=== PATIENT | male | born 1960 | race Caucasian/White ===

== ENCOUNTER 2019-10-10 23:33 | Inpatient (IN) | payer BC, OTHER, SELFPAY ==
--- NOTE | ~2019-10-10 | US_ITS ---
EXAMINATION: US renal BI DATE: 10/13/2019 15:32 INDICATION: Fever TECHNIQUE: Multiple grayscale and Doppler ultrasound images of the kidneys were obtained. COMPARISON: 10/12/2019 FINDINGS: The right kidney measures 11.2 x 5.8 x 7.1 cm. The left kidney measures 14.7 x 6.6 x 6.5 cm . The kidneys demonstrate normal parenchymal echogenicity. There is no hydronephrosis. The bladder is incompletely distended but normal in appearance. IMPRESSION: 1. Normal kidneys without hydronephrosis. Reviewed, dictated and finalized at location A.
--- NOTE | ~2019-10-10 | US_ITS ---
EXAMINATION:US venous doppler LE BI INDICATION:Elevated d-dimer. Nondiagnostic CT angiogram. TECHNIQUE: Multiple grayscale, color flow and Doppler images of the lower extremity deep venous syste ms were obtained and reviewed. COMPARISON:No prior studies for comparison. FINDINGS: The common femoral, superficial femoral and popliteal veins demonstrate normal respiratory variation, augmentation and compressibility. Color flow is also seen within the posterior tibial, pe roneal, greater saphenous and profunda veins. IMPRESSION: 1: No lower extremity deep venous thrombosis. Reviewed, dictated and finalized at location A.
--- NOTE | ~2019-10-10 | NM_ITS ---
EXAMINATION: NM pulmonary perfusion EXAM DATE: 10/12/2019 12:37 INDICATION: Shortness of breath, elevated d-dimer. TECHNIQUE: A perfusion scan was performed following intravenous injection of 5 mCi technetium 99m MAA and reimaged. Correlation is made to Chest x-ray, abdomen pelvis CT same date. FINDINGS: There are no perfusion defects identified in either lung. Homogeneous lung activity bilate rally. IMPRESSION: Normal perfusion scan. Reviewed, dictated and finalized at location B. IMPRESSION: Normal perfusion scan.
--- NOTE | ~2019-10-10 | XR_ITS ---
EXAMINATION: XR chest 2V EXAM DATE: 10/12/2019 12:52 INDICATION: Shortness of breath. TECHNIQUE: Frontal and lateral projections of the chest obtained and reviewed. Comparison is made to prior examination from 03/10/2013. FINDINGS: The lungs are clear. There are no pleural effusions. The cardiomediastinal silhouette is within normal limits. There is no pneumothorax suspected. The bones and soft tissues are unremarkab le. IMPRESSION: Unremarkable chest x-ray exam. Reviewed, dictated and finalized at location B.
--- NOTE | ~2019-10-10 | CT_ITS ---
EXAMINATION: CT abdomen pelvis wo con EXAM DATE: 10/12/2019 12:33 INDICATION: Hyponatremia. Elevated liver function tests. Fever. Prostate cancer. TECHNIQUE: Spiral CT of the abdomen and pelvis was performed without contrast. Axial, coronal and sag ittal images were reviewed. The dose-length product (DLP) for this examination was 863.76 mGy-cm. T he exposure was tailored according to patient size (auto mA exposure control), and iterative reconstr uction (ASIR) was used as additional dose reduction technique. Comparison is made to prior examinatio n from 02/21/2018. FINDINGS: There is mild to moderate bilateral perinephric and left ureteral nonspecific fat stranding without nephrolithiasis or hydronephrosis. This was not present in 2018. Patient has likely had pros tatectomy. The bladder is unremarkable. The liver, spleen, adrenal glands and pancreas are unremar kable. Gallbladder is unremarkable. No biliary obstruction. There is no retroperitoneal or pelvic lymphadenopathy. Evidence of prior supraumbilical laparotomy. Small umbilical fat-containing hernia . Mild scattered arteriosclerotic disease. The appendix is normal. The stomach and small bowel are unremarkable. There is colonic fluid, correl ate for diarrhea. There is moderate sigmoid, mild to moderate descending and transverse colonic diver ticulosis. There is no adjacent inflammatory change to suggest diverticulitis. No free intraperito dale gas. The heart is normal in size. There are no pericardial or pleural effusions. The lung ba ses are unremarkable. There are no osteoblastic or osteolytic lesions identified. Moderate disc dise ase at L4-5. IMPRESSION: 1. Mild to moderate bilateral perinephric and left periureteral fat stranding; correlate with urinal ysis for possible upper urinary tract infection. 2. Colonic fluid, correlate for diarrhea. 3. Colonic diverticulosis. Reviewed, dictated and finalized at location B. IMPRESSION: 1. Mild to moderate bilateral perinephric and left periureteral fat stranding; correlate with urinalysis for possible upper urinary tract infection. 2. Colonic fluid, correlate for diarrhea. 3. Colonic diverticulosis.
--- NOTE | ~2019-10-10 | CT_ITS ---
EXAMINATION: CTA chest PE protocol DATE: 10/11/2019 09:19 CDT INDICATION: Fever. Difficulty sleeping. TECHNIQUE: Computed tomographic angiography (CTA) of the chest was performed with 100 mL Omnipaque-35 0 intravenous contrast. The dose-length product was 514.68 mGy-cm. Maximum intensity projection 3D-re constructions of the aorta and other arteries were constructed by the technologist on a separate work station. Automated exposure control and iterative reconstruction technique were employed. COMPARISON: Chest x-ray dated 03/10/2013. FINDINGS: The study is technically nondiagnostic for pulmonary embolism. No significant pleural or pe ricardial effusion. Small hiatal hernia. Heart size normal. No thoracic lymphadenopathy. No evidence for aortic aneurysm or dissection. No focal airspace consolidation. No pneumothorax. No endobronchial lesions. No pulmonary nodules or masses. Colonic diverticulosis. Otherwise, upper abdomen is unremar kable. IMPRESSION: 1. No acute cardiopulmonary disease. Study nondiagnostic for evaluation of pulmonary embolism. Consid er correlation with ventilation/perfusion scan or repeat CT angiogram. 2: Small hiatal hernia. Reviewed, dictated and finalized at location A. IMPRESSION: 1. No acute cardiopulmonary disease. Study nondiagnostic for evaluation of pulm onary embolism. Consider correlation with ventilation/perfusion scan or repeat CT angiogram. 2: Small hiatal hernia.
--- NOTE | ~2019-10-10 | US_ITS ---
US right upper quadrant INDICATION: Elevated liver enzymes PROCEDURE: Realtime right upper abdominal ultrasound. COMPARISON: CT dated 02/21/2018 FINDINGS: The pancreas is obscured by overlying bowel content. Liver echotexture is increased and he terogeneous, consistent with fatty infiltration. There is normal directional flow in the portal vein . The gallbladder is normal without stones, gallbladder wall thickening or pericholecystic fluid. Comm on bile duct measures 5 mm. No sonographic Seals's sign. IMPRESSION: 1: Hepatic steatosis. Reviewed, dictated and finalized at location A. IMPRESSION: 1: Hepatic steatosis.
[2019-10-10 23:36] VITALS: BP 142/80; PULSE 121; RESP 20; TEMP 37.6; O2SAT 95
[2019-10-10 23:44] VITALS: BP 127/95; PULSE 109; RESP 20; TEMP 38.9; O2SAT 96
--- NOTE | 2019-10-10 23:44 | ECG_ITS ---
Measurements Intervals [place] Rate: 109 P: 54 DC: 164 QRS: 59 QRSD: 94 T: 58 QT: 341 QTc: 461 Interpretive Statements SINUS TACHYCARDIA BORDERLINE ST ABNORMALITY- ANTEROLATERAL LEADS ABNORMAL ECG Electronically Signed On 10-11-2019 8:12:07 CDT by César Mooney D.O.
--- NOTE | 2019-10-10 23:44 | ED.GENADULT ---
HPI - General Adult General Chief complaint: Unspecified Stated complaint: cannot sleep Time Seen by Provider: 10/10/19 23:44 Source: patient Mode of arrival: ambulatory Limitations: no limitations History of Present Illness HPI narrative: This patient is a 59 year old male who presents for evaluation of shortness of breath and difficulty sleeping. He states for that past week he has been unable to sleep. He states he tosses and turns all night. He is able to fall asleep for a short period but then he will wake up. HE states he does not have history of anxiety . He states he is not short of breath at night but he has been having shortness of breath when he walks around the house. He has also been having intermittent fever over the past week so he was tested for COVID last week. His results were negative. He attributes his fever to having a UTI and he is completing a course of antibiotics (Bactrim). He denies chest pain. Related Data Home Medications Medication Instructions Recorded Confirmed hydroxyzine HCl 50 mg PO HS 10/10/19 10/10/19 rosuvastatin 10 mg PO DAILY 10/10/19 10/11/19 sulfamethoxazole-trimethoprim 1 tablet PO BID 10/10/19 10/10/19 Allergies Allergy/AdvReac Type Severity Reaction Status Date / Time No Known Allergies Allergy Verified 10/10/19 23:45 Review of Systems Review of Systems: All systems reviewed & are unremarkable except as noted in HPI and below Constitutional: Constitutional: Reports fever(s) and Reports weakness Cardiovascular: Cardiovascular: Denies chest pain and Reports rapid heart rate Respiratory: Respiratory: Reports dyspnea Gastrointestinal: Gastrointestinal: Denies abdominal pain, Denies diarrhea, Reports nausea and Denies vomiting Genitourinary: Genitourinary: Denies dysuria and Reports urinary frequency Musculoskeletal: Musculoskeletal: Denies back pain Neurologic: Comments: unable to sleep PENDING SALE TO [facility] Past Medical History Medical History (Updated 10/11/19 @ 05:34 by Zoë Vazquez MD) Hyperlipidemia Prostate cancer Surgical History Surgical History H/O prostatectomy Family History Family History Father Hypertension Social History Social History Smoking status: Never smoker Alcohol intake: current Drinks per week: 2 Substance use: never Substance use type: does not use Gender identity (if verbalized by the patient): Male Sexual Orientation (if Verbalized by the Patient): Straight or Heterosexual Spiritual care concerns: No Exam Narrative: Exam Narrative: GENERAL: Well-appearing, well-nourished, and in no acute distress. HEAD: Normocephalic, atraumatic EYES: PERRLA and EOMI, conjunctiva clear without discharge EARS: TM's clear bilaterally without erythema or dullness NOSE: Nares clear, no rhinorrhea or epistaxis THROAT:Mucous membranes moist, Oropharynx normal without erythema, exudate, peritonsillar swelling or fluctuance NECK: Supple, without lymphadenopathy or mass RESPIRATORY: No respiratory distress, Airway patent, Respirations non-labored, Clear to auscultation without rales, rhonchi or wheeze HEART: Regular rate and rhythm. No murmur heard. Normal peripheral pulses. ABDOMEN: Soft, nontender, nondistended, normal active bowel sounds. No masses. No rebound or guarding, No organomegaly. EXTREMITIES: No edema, normal strength with full range of motion. SKIN: Warm, dry, normal color without rash NEURO: Alert and oriented x3. CN 2-12 grossly intact. No focal deficits. PSYCH: Normal mood and affect. Course Consultations Consultation #1: I discussed case with Dr. Rogers who accepts patient for admission. He is okay with given dose of lovenox with VQ scan after admission since radiologist reports CT is nondiagnostic for PE Date: 10/11/19 Time: 02:40 Vital Signs Vital s
[2019-10-10 23:48] VITALS: RESP 20
[2019-10-11] VITALS (21 sets, daily range): BP systolic 114–153; BP diastolic 54–93; PULSE 86–104; RESP 16–20; TEMP 37–40.1; O2SAT 95–98; BMI 29.9
[2019-10-11 00:01] LABS: Basophils Absolute Auto 0.1 K/mm3 (0.0-0.1); Basophils Percent Auto 0.6 % (0.2-1.2); Hematocrit 34.6 % (42.0-52.0); Hemoglobin 12.4 g/dL (14.0-18.0); Immature Granulocyte Absolute 0.08 K/mm3 (0.00-0.031); Immature Granulocyte Percent A 0.8 % (0-0.5); Lymphocytes Absolute Auto 2.46 K/mm3 (0.9-3.2); Lymphocytes Percent Auto 25.4 % (18.3-44.2); Mean Corpuscular HGB Conc 35.8 g/dl (32-36); Mean Corpuscular Hemoglobin 31.9 pg (26-34); Mean Corpuscular Volume 88.9 fl (80-100); Mean Platelet Volume 10.4 fl (7.4-10.4); Monocytes Absolute Auto 0.5 K/mm3 (0.1-0.6); Monocytes Percent Auto 4.9 % (2.6-8.5); Neutrophils Absolute Auto 6.6 K/mm3 (1.3-6.7); Neutrophils Percent Auto 68.3 % (45.5-73.1); Platelet Count Result 174 k/mm3 (150-375); Red Blood Count 3.89 M/mm3 (4.6-6.20); Red Cell Distribution Width 13.1 % (11.5-14.5); White Blood Count 9.7 K/mm3 (4.5-10.0)
[2019-10-11 00:15] LABS: INR 1.2; Prothrombin Time 14.4 Seconds (11.1-14.7)
[2019-10-11 00:16] LABS: Partial Thromboplastin Time 29.2 SECONDS (22.3-36.8)
[2019-10-11 00:19] LABS: Alanine Aminotransferase 268 U/L (4-50); Albumin Level 3.8 g/dL (3.5-5.1); Alkaline Phosphatase 140 U/L (38-126); Aspartate Amino Transferase 136 U/L (17-59); Bilirubin,Total 0.6 mg/dL (0.2-1.3); Blood Urea Nitrogen 17 mg/dL (9-20); CRP 4.8 mg/dL (<1.0); Calcium 8.6 mg/dL (8.4-10.2); Carbon Dioxide 22 mmol/L (22-30); Chloride 96 mmol/L (98-107); Estimated CRCL calculation 98 ml/min; Estimated Glomerular Filt Rate > 60; Glucose 134 mg/dL (75-110); Lactate Dehydrogenase 1139 U/L (313-618); Magnesium 1.7 mg/dL (1.6-2.3); Potassium 3.4 mmol/L (3.4-5.0); Sodium 126 mmol/L (137-145)
[2019-10-11 00:23] LABS: Atypical Lymphocytes Present; Platelet Estimate Adequate (Adequate)
[2019-10-11] MEDS: LACTATED RINGERS 1,000 ML 999 ML IV CONT (00:25)
[2019-10-11 00:28] LABS: NT Pro B Type Natriuretic Pept 73 PG/ML (5-100); Troponin I < 0.012 ng/mL (0.000-0.034)
[2019-10-11 00:46] LABS: Add Urine Microscopic? YES; Appearance Urine Clear (Clear); Bilirubin Urine Negative (Negative); Blood Urine Negative (Negative); Color Urine Yellow (Yellow); Glucose Urine UA Negative (Negative); Ketones Urine Trace mg/dL (Negative); Leukocyte Esterase Ur Negative LEU/UL (Negative); Mucus Urine Rare /lpf; Nitrate Urine Negative (Negative); Protein Urine 2+ mg/dL (Negative); RBC Urine 0-2 /hpf (0-2); Specific Grav Ur 1.027 (1.001-1.035); Urobilinogen Urine Negative mg/dL (<2.0); WBC Urine 0-3 /hpf
[2019-10-11 01:17] LABS: D Dimer 2.65 ug/mL (<0.48)
[2019-10-11 01:29] LABS: Thyroid Stimulating Hormone Reflex 0.757 uIU/mL (0.465-4.68)
[2019-10-11 02:32] LABS: Ferritin > 2000.00 ng/mL (11.1-264)
[2019-10-11] MEDS: ENOXAPARIN 100 MG/ML SYRINGE SUB-Q (03:00)
--- NOTE | 2019-10-11 03:17 | PM.IMHP ---
H&P: HPI History of Present Illness Chief complaint: hyponatremia, weakness, elevated lft Narrative: This is a pleasant 59 year old male with known history of hyperlipidemia and prostate cancer s/p prostatectomy last year who just recently finished radiation therapy a few months ago and presented to the hospital with a complaint of fever, chills, and difficulty sleeping since this past weekend. The patient first noticed he developed a fever this past Saturday evening and also started to experience subjective shortness of breath. He has had unexplained insomnia and can only sleep for an hour or so before he wakes up uncomfortable. He was just tested for COVID-19 this past week and was negative. He saw [facility] who obtained a urinalysis that was abnormal and started him on Bactrim. The patient denies any sick contacts. He also denies any headache, neck stiffness, cough, sore throat, congestion, chest pain, abdominal pain, dysuria, hematuria, nausea, vomiting, rectal bleeding, LE swelling or LE redness. The patient is known to have chronic diarrhea since having radiation therapy which hasn't changed. He drinks alcohol occasionally but not everyday and does not drink heavily. He denies any recent long distance travel or surgeries. He has never had any type of blood clot before. The patient was evaluated in the ER and routine labs demonstrated elevated liver enzymes which he reports he has never had before and moderate hyponatremia. The patient was swabbed for COVID-19 in the ER. CTA chest for PE was obtained in the ER but inconclusive. The patient was anticoagulated with SC Lovenox and we have been asked to admit him to the hospital for further care. The patient has no other complaints. Review of Systems Review of Systems: All systems reviewed & are unremarkable except as noted in HPI and below PMFSH Past Medical History Medical History (Updated 10/11/19 @ 05:34 by Zoë Vazquez MD) Hyperlipidemia Prostate cancer Surgical History Surgical History H/O prostatectomy Family History Family History Father Hypertension Social History Social History Smoking status: Never smoker Alcohol intake: current Drinks per week: 2 Substance use: never Substance use type: does not use Gender identity (if verbalized by the patient): Male Sexual Orientation (if Verbalized by the Patient): Straight or Heterosexual Spiritual care concerns: No Meds Home Medications and Allergies Home Medications Medication Instructions Recorded Confirmed Type hydroxyzine HCl 50 mg PO HS 10/10/19 10/10/19 History rosuvastatin 10 mg PO DAILY 10/10/19 10/11/19 History sulfamethoxazole-trimethoprim 1 tablet PO BID 10/10/19 10/10/19 History Allergies Allergy/AdvReac Type Severity Reaction Status Date / Time No Known Allergies Allergy Verified 10/10/19 23:45 Vital Signs Vital Signs - 24 hr 10/10/19 23:36 10/10/19 23:44 10/10/19 23:48 Temperature 37.6 C H 38.9 C H Pulse Rate 121 H 109 H Respiratory Rate 20 20 20 Blood Pressure 142/80 H 127/95 H Pulse Oximetry 95 96 10/11/19 00:25 10/11/19 00:50 10/11/19 01:05 Temperature 37.2 C 37.2 C Pulse Rate 104 H 97 Respiratory Rate 18 20 Blood Pressure 153/93 H 143/88 H Pulse Oximetry 95 97 10/11/19 02:06 10/11/19 03:06 10/11/19 03:10 Temperature Pulse Rate 96 89 89 Respiratory Rate 20 20 20 Blood Pressure 125/85 130/77 130/77 Pulse Oximetry 95 96 96 Exam Const: General: cooperative, no acute distress, alert, awake and other (Febrile to touch++ ) Nutritional Appearance: overweight Orientation/consciousness: patient oriented x3 HENMT: Head: normal to inspection General nose exam: Normal external nose present Face and sinus: normal facial exam Mouth: Yes Normal oral and palatal mucosa pr
--- NOTE | 2019-10-11 03:30 | ADMGEN ---
This patient, Ortega Melendez, was admitted to 3 [facility] Surg Room 330-01. Patient/family oriented to hospital policies and general routines including ID bracelet, bed and alarms, visiting hours, pain management, procedures, bathroom and other care routines, personal items, smoking policy, room service/diet, and visiting hours. Valuables list has been completed. Information on how to activate the Rapid Response Team has been discussed. Patient/Family are encouraged to report perceived risks to care and to ask questions if they do not understand what they are told or what they should do.
[2019-10-11] MEDS: SODIUM CHLORIDE 0.9% IV 1,000 ML 100 ML IV CONT (04:28)
[2019-10-11] MEDS: IBUPROFEN 400 MG TABLET PO ×3 (06:27→21:46)
[2019-10-11 07:11] LABS: Basophils Percent Auto 0.5 % (0.2-1.2); Hematocrit 32.9 % (42.0-52.0); Hemoglobin 11.5 g/dL (14.0-18.0); Immature Granulocyte Absolute 0.08 K/mm3 (0.00-0.031); Lymphocytes Absolute Auto 2.37 K/mm3 (0.9-3.2); Lymphocytes Percent Auto 28.6 % (18.3-44.2); Mean Corpuscular Hemoglobin 31.4 pg (26-34); Mean Corpuscular Volume 89.9 fl (80-100); Mean Platelet Volume 10.4 fl (7.4-10.4); Monocytes Absolute Auto 0.4 K/mm3 (0.1-0.6); Monocytes Percent Auto 4.9 % (2.6-8.5); Neutrophils Absolute Auto 5.4 K/mm3 (1.3-6.7); Platelet Count Result 163 k/mm3 (150-375); Red Blood Count 3.66 M/mm3 (4.6-6.20); Red Cell Distribution Width 13.2 % (11.5-14.5); White Blood Count 8.3 K/mm3 (4.5-10.0)
[2019-10-11 07:22] LABS: Alanine Aminotransferase 226 U/L (4-50); Albumin Level 3.4 g/dL (3.5-5.1); Alkaline Phosphatase 123 U/L (38-126); Aspartate Amino Transferase 95 U/L (17-59); Bilirubin,Total 0.5 mg/dL (0.2-1.3); Blood Urea Nitrogen 13 mg/dL (9-20); Calcium 8.3 mg/dL (8.4-10.2); Carbon Dioxide 25 mmol/L (22-30); Chloride 98 mmol/L (98-107); Estimated CRCL calculation 87 ml/min; Estimated Glomerular Filt Rate > 60; Glucose 121 mg/dL (75-110); Sodium 132 mmol/L (137-145)
[2019-10-11 07:39] LABS: Platelet Estimate Adequate (Adequate)
[2019-10-11 07:40] LABS: Atypical Lymphocytes Present
[2019-10-11 08:12] LABS: Hepatitis B Surface Antigen Negative (Negative)
[2019-10-11 08:29] LABS: Hepatitis C Virus Antibody Negative (Negative)
[2019-10-11] MEDS: POTASSIUM CHLORIDE 20 MEQ TABLET 40 MEQ PO (08:35)
--- NOTE | 2019-10-11 08:35 | PC.NURSE ---
PATIENT C/O unABLE TO SLEEP.
[2019-10-11 08:43] LABS: Hepatitis B Core IgM Result Negative (Negative)
[2019-10-11 09:00] LABS: HAV RESULT Negative (Negative)
--- NOTE | 2019-10-11 11:23 | PM.IMPN ---
Progress Note: A&P Assessment and Plan (1) Febrile illness, acute: Code(s): R50.9 - Fever, unspecified Status: Acute Assessment and Plan: Fevers x1 week. 102.4 this morning. Continue supportive care with ibuprofen and IV hydration. Hepatitis panel is negative. RUQ ultrasound shows hepatic steatosis. NAHUM, influenza, [place]-srivastava panel pending. He tested negative for COVID 10/04; tested again for COVID in ED and this is pending. Discussed case with [place] physician. Patient was initially interested in transfer to [place] to use his [facility] benefits. [facility] noted his current COVID test would need to come back prior to transfer. If patient does not discharge tomorrow, could reconsider getting him over to [place]. He is agreeable to staying here. (2) Sepsis: Qualifiers: Sepsis type: sepsis due to unspecified organism Sepsis acute organ dysfunction status: with acute organ dysfunction Severe sepsis acute organ dysfunction type: acute liver failure Hepatic coma status: without hepatic coma Severe sepsis shock status: without septic shock Qualified Code(s): A41.9 - Sepsis, unspecified organism; R65.20 - Severe sepsis without septic shock; K72.00 - Acute and subacute hepatic failure without coma Code(s): A41.9 - Sepsis, unspecified organism Status: Acute Assessment and Plan: With fever and tachycardia; source is unclear but may be related to a viral syndrome. No overt signs of a bacterial infection at this time. Blood pressure and lactic acid within normal limits. Monitor vital signs and urine output. (3) Transaminitis: Code(s): R74.0 - Nonspecific elevation of levels of transaminase and lactic acid dehydrogenase [LDH] Status: Acute Assessment and Plan: May be related to drug induced liver injury ? tylenol and nsaids, bactrim, statin. ?autoimmune. Hepatitis panel negative. RUQ us shows hepatic steatosis. EBV panel pending. Trend LFTs in AM. (4) Elevated d-dimer: Code(s): R79.89 - Other specified abnormal findings of blood chemistry Status: Acute Assessment and Plan: CTA for PE was nondiagnostic. VQ scan ordered for tomorrow. Venous dopplers lower extremities are negative for DVT. (5) Normocytic anemia: Code(s): D64.9 - Anemia, unspecified Status: Acute Assessment and Plan: Unsure of chronicity. No evidence of acute bleeding. Monitor H&H, transfuse PRN. (6) Suspected COVID-19 virus infection: Code(s): Z20.828 - Contact with and (suspected) exposure to other viral communicable diseases Status: Acute Assessment and Plan: The patient tested negative for COVID-19 10/04. He was swabbed again in the ER. Continue droplet isolation. Supportive care. COVID-19 results pending. (7) Hyponatremia: Code(s): E87.1 - Hypo-osmolality and hyponatremia Status: Acute Assessment and Plan: Fluid restriction. Light IV hydration w/ NS. Improved today. TSH was normal. (8) Hyperlipidemia: Qualifiers: Hyperlipidemia type: unspecified Qualified Code(s): E78.5 - Hyperlipidemia, unspecified Code(s): E78.5 - Hyperlipidemia, unspecified Status: Chronic Assessment and Plan: Hold statin thearpy secondary to elevated liver enzymes. Subjective Date/time seen: 10/11/19 1045 Interval history: Mr. Melendez is a 59yo M admitted for febrile illness. He describes fevers began 1 week ago 10/03 Tmax 103.4 at home. He notes he has only been able to get about 1 hour of sleep each night. He describes he feels like his heart is racing when he gets up to walk so he will have to stop to take a break but he does not feel short of breath. He denies chest pain. He denies nausea, vomiting or abdominal pa
[2019-10-11] MEDS: SODIUM CHLORIDE 0.9% IV 1,000 ML 80 ML IV CONT (15:29)
[2019-10-11] MEDS: LORAZEPAM 0.5 MG TABLET PO ×2 (15:47→21:00)
[2019-10-11 17:01] LABS: Influenza Control Positive
[2019-10-11] MEDS: MELATONIN 3 MG TABLET PO (20:54)
[2019-10-11] MEDS: hydrOXYzine HCL 25 MG TABLET 50 MG PO (20:54)
[2019-10-12] VITALS (18 sets, daily range): BP systolic 110–143; BP diastolic 57–90; PULSE 92–123; RESP 16–20; TEMP 36.9–39; O2SAT 97–100
--- NOTE | 2019-10-12 | ECHO_ITS ---
Patient Info Name: Ortega Melendez Age: 59 years : 1960 Gender: Male Ht: 69 in Wt: 203 lbs BSA: 2.14 m2 HR: 110 bpm BP: 139 / 90 mmHg Heart Rhythm: Tachycardia Technical Quality: Fair Exam Date: 10/12/2019 1:26 PM Exam Location: [facility] Patient Status: Inpatient Admit Date: 10/11/2019 Staff Ordering Physician: Mercy Anderson PA-C Oracle Developer: Keyur Torres RDCS Attending Provider: Mercy Anderson PA-C Exam Type: CA echo doppler color flow Study Info Indications 780.6 - Fever Complete two-dimensional, color flow and Doppler transthoracic echocardiogram is performed. History/Risk Factors Sepsis; tachycardia, SOB. Summary 1. Technically difficult study with limited views. Normal LV size and wall thickness, Overall LV systolic function appears normal with ejection fraction 65-70%; normal diastolic function. Valves are not well visualized. Unable to assess RVSP due to inadequate TR jet velocity. Consider contrast enhanced echo. Left Ventricle Left ventricular chamber dimension is normal. Left ventricular systolic function is normal, estimated at 65-70%. There is no increased left ventricular wall thickness. The left ventricular diastolic function is normal. Right Ventricle Right ventricular chamber dimension is normal. Right ventricular systolic function is normal. Left Atria Left atrial chamber dimension is not well visualized. Right Atria Right atrial chamber dimension is not well visualized. Aortic Valve The aortic valve is not well visualized. There is mild aortic valve stenosis. Pulmonic Valve The pulmonic valve is not well visualized. Mitral Valve The mitral valve has not well visualized. Tricuspid Valve The tricuspid valve leaflets are not well visualized. Pericardium/Pleural The pericardium appears normal. Aorta The aortic root size at the sinus of Valsalva is not well visualized. Left Ventricular Outflow Tract Name Value Normal LVOT Doppler LVOT Peak Gradient 7 mmHg LVOT Mean Gradient 3 mmHg LVOT VTI 18 cm LVOT VTI/AV VTI Ratio 0.6 Mitral Valve Name Value Normal MV Doppler MV Decel [place] 474 cm/s2 MV PHT 47 ms MV Area (PHT) 4.7 cm2 4.0-5.0 MV Diastolic Function MV E Peak Velocity 77 cm/s MV A Peak Velocity 54 cm/s MV E/A 1.4 MV Decel Time 163 ms MV Annular TDI MV E/e' (Septal) 12.1 <=8.0 MV E/e' (Lateral) 8.0 <=8.0 MV E/e' (Average)
[2019-10-12] MEDS: IBUPROFEN 400 MG TABLET PO ×2 (00:23→18:41)
[2019-10-12] MEDS: SODIUM CHLORIDE 0.9% IV 1,000 ML 80 ML IV CONT ×2 (03:59→18:44)
[2019-10-12 06:05] LABS: Basophils Percent Auto 0.4 % (0.2-1.2); Hematocrit 33.5 % (42.0-52.0); Hemoglobin 11.2 g/dL (14.0-18.0); Immature Granulocyte Absolute 0.08 K/mm3 (0.00-0.031); Immature Granulocyte Percent A 1.1 % (0-0.5); Lymphocytes Absolute Auto 1.51 K/mm3 (0.9-3.2); Lymphocytes Percent Auto 20.9 % (18.3-44.2); Mean Corpuscular HGB Conc 33.4 g/dl (32-36); Mean Corpuscular Hemoglobin 30.9 pg (26-34); Mean Corpuscular Volume 92.3 fl (80-100); Mean Platelet Volume 10.4 fl (7.4-10.4); Monocytes Absolute Auto 0.3 K/mm3 (0.1-0.6); Monocytes Percent Auto 3.6 % (2.6-8.5); Neutrophils Absolute Auto 5.4 K/mm3 (1.3-6.7); Platelet Count Result 185 k/mm3 (150-375); Red Blood Count 3.63 M/mm3 (4.6-6.20); Red Cell Distribution Width 13.6 % (11.5-14.5); White Blood Count 7.2 K/mm3 (4.5-10.0)
[2019-10-12 06:16] LABS: Alanine Aminotransferase 150 U/L (4-50); Albumin Level 3.2 g/dL (3.5-5.1); Alkaline Phosphatase 113 U/L (38-126); Aspartate Amino Transferase 73 U/L (17-59); Bilirubin,Total 0.5 mg/dL (0.2-1.3); Blood Urea Nitrogen 16 mg/dL (9-20); Calcium 8.1 mg/dL (8.4-10.2); Carbon Dioxide 25 mmol/L (22-30); Chloride 100 mmol/L (98-107); Estimated CRCL calculation 78 ml/min; Estimated Glomerular Filt Rate > 60; Glucose 106 mg/dL (75-110); Magnesium 1.9 mg/dL (1.6-2.3); Phosphorus 2.9 mg/dL (2.5-4.5); Potassium 3.2 mmol/L (3.4-5.0); Sodium 132 mmol/L (137-145)
[2019-10-12 11:01] LABS: SARS-CoV-2 RNA PCR Negative
--- NOTE | 2019-10-12 14:12 | PM.IMPN ---
Progress Note: A&P Assessment and Plan (1) Febrile illness, acute: Code(s): R50.9 - Fever, unspecified Status: Acute Assessment and Plan: Fevers x1 week started 10/03. 104.2 overnight. Continue supportive care with ibuprofen and IV hydration, ice packs. Hepatitis panel is negative. RUQ ultrasound shows hepatic steatosis. Influenza negative. NAHUM, [place] Spotted Fever, [place]-srivastava panel are pending. Was prescribed bactrim 10/06 outpatient for treatment of abnormal UA. CT abdomen shows mild-mod CARROLL perinephric and left periureteral fat stranding without stone or hydronephrosis; these findings may be residual from recent UTI but UA on arrival is clear. Denies dysuria. He tested negative for COVID 10/04; tested again for COVID in ED and negative. CXR is clear. Echocardiogram is pending this afternoon. Discussed case with [place] physician 10/10 since pt was initially interested in transfer to [place] to use his [facility]. [facility] noted his current COVID test would need to come back prior to transfer so they were not able to take him 10/10. Anticipate possible discharge tomorrow if remains afebrile overnight. (2) Sepsis: Qualifiers: Sepsis type: sepsis due to unspecified organism Sepsis acute organ dysfunction status: with acute organ dysfunction Severe sepsis acute organ dysfunction type: acute liver failure Hepatic coma status: without hepatic coma Severe sepsis shock status: without septic shock Qualified Code(s): A41.9 - Sepsis, unspecified organism; R65.20 - Severe sepsis without septic shock; K72.00 - Acute and subacute hepatic failure without coma Code(s): A41.9 - Sepsis, unspecified organism Status: Acute Assessment and Plan: With fever and sinus tachycardia; source is unclear but may be related to a viral syndrome. No overt signs of a bacterial infection at this time. Blood pressure and lactic acid within normal limits. Monitor vital signs and urine output. (3) Transaminitis: Code(s): R74.0 - Nonspecific elevation of levels of transaminase and lactic acid dehydrogenase [LDH] Status: Acute Assessment and Plan: May be related to drug induced liver injury ? tylenol and nsaids, bactrim, statin. ?autoimmune. Hepatitis panel negative, NAHUM pending. RUQ US shows hepatic steatosis. EBV panel pending. Monitor LFTs, trending down today. (4) Elevated d-dimer: Code(s): R79.89 - Other specified abnormal findings of blood chemistry Status: Acute Assessment and Plan: CTA for PE was nondiagnostic. VQ scan is normal. Venous dopplers lower extremities are negative for DVT. (5) Normocytic anemia: Code(s): D64.9 - Anemia, unspecified Status: Acute Assessment and Plan: Unsure of chronicity. No evidence of acute bleeding. Monitor H&H, transfuse PRN. (6) Suspected COVID-19 virus infection: Code(s): Z20.828 - Contact with and (suspected) exposure to other viral communicable diseases Status: Ruled-out Assessment and Plan: COVID negative 10/04 outpatient; retested in ED and again negative. Can discontinue droplet isolation this afternoon. (7) Hyponatremia: Code(s): E87.1 - Hypo-osmolality and hyponatremia Status: Acute Assessment and Plan: Na 126 on arrival, up to 132 today. Patient is not complying with fluid restriction. Light IV hydration w/ NS. TSH was normal. (8) Hyperlipidemia: Qualifiers: Hyperlipidemia type: unspecified Qualified Code(s): E78.5 - Hyperlipidemia, unspecified Code(s): E78.5 - Hyperlipidemia, unspecified Status: Chronic Assessment and Plan: His statin therapy is held secondary to elevated liver enzymes. Subjective Date/time see
[2019-10-12] MEDS: POTASSIUM CHLORIDE 20 MEQ TABLET 40 MEQ PO (18:41)
[2019-10-12] MEDS: MELATONIN 3 MG TABLET PO (20:44)
[2019-10-12] MEDS: hydrOXYzine HCL 25 MG TABLET 50 MG PO (20:44)
[2019-10-13] VITALS (21 sets, daily range): BP systolic 108–124; BP diastolic 56–69; PULSE 81–110; RESP 16–20; TEMP 37.1–38.6; O2SAT 97–100
[2019-10-13] MEDS: IBUPROFEN 400 MG TABLET PO ×3 (05:49→20:02)
[2019-10-13 06:44] LABS: Alanine Aminotransferase 107 U/L (4-50); Albumin Level 2.7 g/dL (3.5-5.1); Alkaline Phosphatase 79 U/L (38-126); Aspartate Amino Transferase 63 U/L (17-59); Bilirubin,Total 0.3 mg/dL (0.2-1.3); Blood Urea Nitrogen 14 mg/dL (9-20); Calcium 7.6 mg/dL (8.4-10.2); Carbon Dioxide 25 mmol/L (22-30); Chloride 100 mmol/L (98-107); Estimated CRCL calculation 87 ml/min; Estimated Glomerular Filt Rate > 60; Glucose 137 mg/dL (75-110); Potassium 2.9 mmol/L (3.4-5.0); Sodium 129 mmol/L (137-145)
[2019-10-13] MEDS: SODIUM CHLORIDE 0.9% IV 1,000 ML 80 ML IV CONT (06:52)
[2019-10-13 11:12] LABS: Monoscreen Negative (Negative); Negative Monotest Control Negative (Negative); Positive Monotest Control Positive (Positive)
[2019-10-13] MEDS: ACETAMINOPHEN 325 MG TABLET 650 MG PO ×2 (13:42→21:46)
--- NOTE | 2019-10-13 14:54 | PM.IMPN ---
Progress Note: A&P Assessment and Plan (1) Febrile illness, acute: Code(s): R50.9 - Fever, unspecified Status: Acute Assessment and Plan: -----patient continues to have intermitten fevers with elevated LFTs. Hepatitis screen is negative. He has had some acute on chronic diarrhea and that has been sent for testing. Cdiff negative. His blood cultures are negative so far. CT of the chest shows no infection. He does have some abnormalities on his abd/pelvis CT which show a possible upper UTI but his UA does not indicate infx. This may be because he received abx orally outpt before obtaining this. I have repeated the UA and I ordered a renal ultra sound. CBC shows atypical lymphs. [place] screen negative. no lymphadenopathy on exam. No rashes on exam. CMV, wet nile, EBV, and rickettsia all less likely but pending. COVID and influenza neg. Will ask infectious disease to see the patient in consult. Another set of blood cultures ordered. Ceftriaxone started d/t CT abnormality and persistent fever. (2) Sepsis: Qualifiers: Sepsis type: sepsis due to unspecified organism Sepsis acute organ dysfunction status: with acute organ dysfunction Severe sepsis acute organ dysfunction type: acute liver failure Hepatic coma status: without hepatic coma Severe sepsis shock status: without septic shock Qualified Code(s): A41.9 - Sepsis, unspecified organism; R65.20 - Severe sepsis without septic shock; K72.00 - Acute and subacute hepatic failure without coma Code(s): A41.9 - Sepsis, unspecified organism Status: Acute Assessment and Plan: ----- With fever and sinus tachycardia; source is unclear but may be related to a viral syndrome. See above. (3) Transaminitis: Code(s): R74.0 - Nonspecific elevation of levels of transaminase and lactic acid dehydrogenase [LDH] Status: Acute Assessment and Plan: ------Unclear etiology at this time. May be releated to infection as stated above. LFTs improving slowly. (4) Elevated d-dimer: Code(s): R79.89 - Other specified abnormal findings of blood chemistry Status: Acute Assessment and Plan: -------CTA for PE was nondiagnostic. VQ scan is normal. Venous dopplers lower extremities are negative for DVT. PE less likely. No hypoxia (5) Normocytic anemia: Code(s): D64.9 - Anemia, unspecified Status: Acute Assessment and Plan: ------Unsure of chronicity. No evidence of acute bleeding. Monitor H&H, transfuse PRN. (6) Suspected COVID-19 virus infection: Code(s): Z20.828 - Contact with and (suspected) exposure to other viral communicable diseases Status: Ruled-out Assessment and Plan: ------COVID negative 10/04 outpatient; retested in ED and again negative. (7) Hyponatremia: Code(s): E87.1 - Hypo-osmolality and hyponatremia Status: Acute Assessment and Plan: ------Na 126 on arrival, 129 today. (8) Hyperlipidemia: Qualifiers: Hyperlipidemia type: unspecified Qualified Code(s): E78.5 - Hyperlipidemia, unspecified Code(s): E78.5 - Hyperlipidemia, unspecified Status: Chronic Assessment and Plan: ------His statin therapy is held secondary to elevated liver enzymes. Time Spent With Patient Time with patient: 25 - 35 minutes Subjective Date/time seen: 10/13/19 14:54 Interval history: Pt is a 59-year-old male here for afebrile illness. Patient was seen today and states he is still feeling like he is running a fever. We reviewed his history again. He said he started feeling bad Saturday night, about 9 days ago. He felt weak but that was about the only symptom he had other than a mild headache. He denies neck pain, neck stiffness, chest pain, shortness of breath, abdominal pain, or dysuria. After being hospitalized he started having more diarrhea. He usually has soft stools because he got radiation for prost
[2019-10-13] MEDS: POTASSIUM CHLORIDE 20 MEQ TABLET 40 MEQ PO (14:55)
[2019-10-13 17:45] LABS: EBV Nuclear Ab Antibody >600.00 U/mL (<18.00); EBV Nuclear Ab Interpretation Past; EBV Virus Capsid Ag IgG Ab >750.00 U/mL (<18.00); EBV Virus Capsid Ag IgM Ab <36.00 U/mL (<36.00)
[2019-10-13 19:18] LABS: Add Urine Microscopic? YES; Amorphous Sediment Urine Moderate; Appearance Urine Cloudy (Clear); Bacteria Urine Trace /hpf; Bilirubin Urine Negative (Negative); Blood Urine 1+ (Negative); Color Urine Yellow (Yellow); Glucose Urine UA Negative (Negative); Ketones Urine Negative (Negative); Leukocyte Esterase Ur Negative LEU/UL (Negative); Mucus Urine Rare /lpf; Nitrate Urine Negative (Negative); Protein Urine 3+ mg/dL (Negative); RBC Urine 0-2 /hpf (0-2); Specific Grav Ur 1.027 (1.001-1.035); Squamous Epithelial Cell Urine Occasional /hpf (Few); Urobilinogen Urine Negative mg/dL (<2.0); WBC Urine 0-3 /hpf
[2019-10-13] MEDS: hydrOXYzine HCL 25 MG TABLET 50 MG PO (20:02)
[2019-10-13] MEDS: POTASSIUM CHLORIDE 20 MEQ TABLET PO (20:02)
[2019-10-13] MEDS: MELATONIN 3 MG TABLET PO (20:03)
[2019-10-13] MEDS: LORAZEPAM 0.5 MG TABLET PO (23:01)
[2019-10-14] VITALS (8 sets, daily range): BP systolic 99–127; BP diastolic 50–68; PULSE 58–116; RESP 15–20; TEMP 36.4–38.3; O2SAT 95–98
[2019-10-14] MEDS: SODIUM CHLORIDE 0.9% IV 1,000 ML 80 ML IV CONT (00:36)
[2019-10-14 06:42] LABS: Basophils Percent Auto 0.3 % (0.2-1.2); Eosinophils Percent Auto 0.1 % (0-4.4); Hematocrit 29.9 % (42.0-52.0); Hemoglobin 10.3 g/dL (14.0-18.0); Immature Granulocyte Absolute 0.07 K/mm3 (0.00-0.031); Immature Granulocyte Percent A 0.9 % (0-0.5); Lymphocytes Absolute Auto 1.82 K/mm3 (0.9-3.2); Lymphocytes Percent Auto 24.2 % (18.3-44.2); Mean Corpuscular HGB Conc 34.4 g/dl (32-36); Mean Corpuscular Hemoglobin 31.4 pg (26-34); Mean Corpuscular Volume 91.2 fl (80-100); Monocytes Absolute Auto 0.4 K/mm3 (0.1-0.6); Neutrophils Absolute Auto 5.2 K/mm3 (1.3-6.7); Neutrophils Percent Auto 69.5 % (45.5-73.1); Platelet Count Result 161 k/mm3 (150-375); Red Blood Count 3.28 M/mm3 (4.6-6.20); Red Cell Distribution Width 13.7 % (11.5-14.5); White Blood Count 7.5 K/mm3 (4.5-10.0)
[2019-10-14 06:56] LABS: Sodium 128 mmol/L (137-145)
[2019-10-14 07:01] LABS: Alanine Aminotransferase 98 U/L (4-50); Albumin Level 2.5 g/dL (3.5-5.1); Alkaline Phosphatase 79 U/L (38-126); Aspartate Amino Transferase 68 U/L (17-59); Bilirubin,Total 0.3 mg/dL (0.2-1.3); Blood Urea Nitrogen 15 mg/dL (9-20); CRP 7.9 mg/dL (<1.0); Calcium 7.5 mg/dL (8.4-10.2); Carbon Dioxide 21 mmol/L (22-30); Chloride 102 mmol/L (98-107); Estimated CRCL calculation 87 ml/min; Estimated Glomerular Filt Rate > 60; Glucose 94 mg/dL (75-110); Potassium 3.5 mmol/L (3.4-5.0)
[2019-10-14] MEDS: DOXYCYCLINE HYCLATE 100 MG TABLET PO (10:53)
--- NOTE | 2019-10-14 11:39 | WPDINFPN2 ---
Progress Note: A&P Assessment and Plan (1) Febrile illness, acute: Code(s): R50.9 - Fever, unspecified Status: Acute Assessment and Plan: 1. Fever, viral syndrome e.g., enterovirus, suspected 2. Elevated LFTs, due to #1 or due to [id number]-[id number] hypersensitivity 3. Past prostate cancer, not immunosuppressed. 4. Hyponatremia, SIADH? REC Hold empiric antibacterials. Multiple serologies in process, nothing to add for now. LP if fever trends back up. No isolation. Subjective Date/time seen: 10/14/19 11:39 Objective Data Vital Signs Vital Signs: Vital Signs - 24 hr 10/13/19 12:00 10/13/19 13:42 10/13/19 14:00 Temperature 37.7 C H 37.7 C H Pulse Rate 103 H 98 Respiratory Rate 16 Blood Pressure 108/56 L Pulse Oximetry 98 10/13/19 14:56 10/13/19 16:00 10/13/19 20:00 Temperature 37.4 C 38.2 C H Pulse Rate 97 110 H Respiratory Rate 20 Blood Pressure 124/65 Pulse Oximetry 99 10/13/19 20:02 10/13/19 21:02 10/13/19 21:46 Temperature 38.2 C H 38.2 C H 38.2 C H Pulse Rate Respiratory Rate Blood Pressure Pulse Oximetry 10/13/19 22:00 10/13/19 23:21 10/14/19 00:00 Temperature 38.2 C H 37.1 C 37.6 C H Pulse Rate 92 Respiratory Rate 20 Blood Pressure 104/55 L Pulse Oximetry 97 10/14/19 05:49 10/14/19 10:13 Temperature 36.4 C 37.2 C Pulse Rate 106 H 102 H Respiratory Rate 20 18 Blood Pressure 105/50 L 100/55 L Pulse Oximetry 97 96 Intake/Output Intake/Output: Intake & Output 10/11/19 10/12/19 10/13/19 10/14/19 23:59 23:59 23:59 23:59 Intake Total 2970 5031 4050 1000 Output Total 780 390 7658 400 Balance 2770 4831 2950 600 Meds/Results Medications: Active Medications Generic Name Dose Route Start Last Admin Trade Name Freq PRN Reason Stop Dose Admin Acetaminophen 650 mg 10/13/19 12:38 10/13/19 21:46 Tylenol Tablet PO 650 mg Q6H PRN Administration Mild Pain (1-3) or Fever Diphenhydramine HCl 25 mg 10/11/19 03:58 10/13/19 23:01 Benadryl Elixir BY MOUTH 25 mg ONCE PRN Administration insomnia Hydroxyzine HCl 50 mg 10/11/19 21:00 10/13/19 20:02 Atarax Tablet PO 50 mg HS ROB Administration Ibuprofen 400 mg 10/11/19 06:22 10/13/19 20:02 Motrin PO 400 mg Q6H PRN Administration Pain Rated 1-3 or Fever Lorazepam 0.5 mg 10/11/19 15:34 10/13/19 23:01 Ativan Tab PO 0.5 mg Q6H PRN Administration Anxiety Melatonin 3 mg 10/11/19 21:00 10/13/19 20:03 Melatonin PO 3 mg HS ROB Administration Radiology Results: ITS Impressions Chest CTA 10/11/19 09:19 IMPRESSION: 1. No acute cardiopulmonary disease. Study nondiagnostic for evaluation of pulmonary embolism. Consider correlation with ventilation/perfusion scan or repeat CT angiogram. 2: Small hiatal hernia. Venous Doppler Study 10/11/19 10:32 IMPRESSION: 1: No lower extremity deep venous thrombosis. Upper Quadrant Ultrasound 10/11/19 10:33 IMPRESSION: 1: Hepatic steatosis. Pulmonary Perfusion Imaging 10/12/19 12:53 IMPRESSION: Normal perfusion scan. Chest X-Ray 10/12/19 12:55 IMPRESSION: Unremarkable chest x-ray exam. Abdomen/Pelvis CT 10/12/19 12:56 IMPRESSION: 1. Mild to moderate bilateral perinephric and left periureteral fat stranding; correlate with urinalysis for possible upper urinary tract infection. 2. Colonic fluid, correlate for diarrhea. 3. Colonic diverticulosis. Renal Ultrasound 10/13/19 15:37 IMPRESSION: 1. Normal kidneys without hydronephrosis. Labs Labs: Laboratory Results - last 24 hr 10/11/19 10/13/19 10/14/19 12:00 19:06 06:14 WBC RBC Hgb Hct MCV MCH MCHC RDW Plt Count MPV Immature Gran % (Auto) Neut % (Auto) Lymph % (Auto) [place] % (Auto) Eos % (Auto) Baso % (Auto) Lymph # (Auto) [place] # (Auto) Eos # (Auto) Ba
[2019-10-14 11:55] LABS: Creatinine Urine 164.3 mg/dL; Total Protein Urine Random 124 mg/dL
[2019-10-14 12:17] LABS: Sodium Urine Random 113 meq/L
--- NOTE | 2019-10-14 13:07 | PM.IMPN ---
Progress Note: A&P Assessment and Plan (1) Febrile illness, acute: Code(s): R50.9 - Fever, unspecified Status: Acute Assessment and Plan: -----patient continues to have intermitten fevers with elevated LFTs and diarrhea. Hepatitis screen is negative. He has had some acute on chronic diarrhea and that has been sent for testing which is all negative so far. Still awaiting campylobacter and salmonella. Cdiff negative. His blood cultures are negative so far. CT of the chest shows no infection. He does have some abnormalities on his abd/pelvis CT which show a possible upper UTI but his UA and U/S does not support this. CBC shows atypical lymphs. [place] screen negative. no lymphadenopathy on exam. No rashes on exam. CMV, wet nile, lymes, EBV, and rickettsia all less likely but pending. COVID and influenza neg. Legionella type symptoms (diarrhea, fever, hyponatremia) but no PNA. [place] fever? ID consulted. ABX stopped. (2) Sepsis: Qualifiers: Sepsis type: sepsis due to unspecified organism Sepsis acute organ dysfunction status: with acute organ dysfunction Severe sepsis acute organ dysfunction type: acute liver failure Hepatic coma status: without hepatic coma Severe sepsis shock status: without septic shock Qualified Code(s): A41.9 - Sepsis, unspecified organism; R65.20 - Severe sepsis without septic shock; K72.00 - Acute and subacute hepatic failure without coma Code(s): A41.9 - Sepsis, unspecified organism Status: Acute Assessment and Plan: ----- With fever and sinus tachycardia; source is unclear but may be related to a viral syndrome. See above. (3) Transaminitis: Code(s): R74.0 - Nonspecific elevation of levels of transaminase and lactic acid dehydrogenase [LDH] Status: Acute Assessment and Plan: ------Unclear etiology at this time. May be releated to infection as stated above. LFTs improving slowly. (4) Elevated d-dimer: Code(s): R79.89 - Other specified abnormal findings of blood chemistry Status: Acute Assessment and Plan: -------CTA for PE was nondiagnostic. VQ scan is normal. Venous dopplers lower extremities are negative for DVT. PE less likely. No hypoxia (5) Normocytic anemia: Code(s): D64.9 - Anemia, unspecified Status: Acute Assessment and Plan: ------Unsure of chronicity. No evidence of acute bleeding. Monitor H&H, transfuse PRN. (6) Suspected COVID-19 virus infection: Code(s): Z20.828 - Contact with and (suspected) exposure to other viral communicable diseases Status: Ruled-out Assessment and Plan: ------COVID negative 10/04 outpatient; retested in ED and again negative. (7) Hyponatremia: Code(s): E87.1 - Hypo-osmolality and hyponatremia Status: Acute Assessment and Plan: ------Na 126 on arrival, 128 today. Urine sodium is high--Likely SIADH. Pt is drinking a lot of fluids. His IV fluids were stopped. If his sodium is not better by tomorrow may need fluid restriction. (8) Hyperlipidemia: Qualifiers: Hyperlipidemia type: unspecified Qualified Code(s): E78.5 - Hyperlipidemia, unspecified Code(s): E78.5 - Hyperlipidemia, unspecified Status: Chronic Assessment and Plan: ------His statin therapy is held secondary to elevated liver enzymes. Subjective Date/time seen: 10/14/19 13:07 Interval history: Pt is a 59-year-old male here for a febrile illness. Pt was seen today and he says he is having diarrhea every 45 minutes. He says he thinks it is getting worse. He has no abdominal pain or nausea associated with this but has had a decreased appetitie. He denies CP, SOB, vision changes, stiff neck, leg swelling, or rashes/wounds. Exam Narrative: Exam Narrative: General: Well developed well nourished patient in NAD HEENT: normocephalic, no lymphadenopathy Neck: supple, no rigidity Skin: No blood
[2019-10-14] MEDS: IBUPROFEN 400 MG TABLET PO (13:48)
--- NOTE | 2019-10-14 17:43 | CONS_ITS ---
DATE OF CONSULTATION: 10/14/2019 REASON FOR CONSULTATION: Fever. HISTORY OF PRESENT ILLNESS: The patient is a 59-year-old male with hyperlipidemia otherwise in good health. He has been on no antibiotics in the last 6 weeks for any reason except as noted below. He is on no immunosuppressants at home. He was in his usual state of health until 7 days before admission when he had new onset of malaise. Six days before admission, he developed fever, which went as high as 39 at home along with chills. The malaise persisted. He also developed bitemporal headaches, nausea, anorexia, shortness of breath, exhaustion, but still unable to sleep soundly. He saw a nurse or nurse practitioner associated with his primary physician 3 days before admission. Trimethoprim-sulfa was prescribed apparently due to an abnormal UA. He took this without fail, but felt no better, presented to the emergency room here on the and was admitted. He had a swab for COVID as an outpatient, this was nonreactive and was repeated here also nonreactive. While here, the patient has received IV fluid resuscitation, ceftriaxone, and doxycycline. The latter were both started yesterday. He has not required any surgical intervention. He has had no close exposure to livestock nor wild animals. No ill household contacts. No recent travel. No previous such episodes, though he does report a history of a staphylococcal infection some 10 years ago. ALLERGIES: NONE KNOWN. HABITS: Social drinker. No tobacco. PRESENT MEDICATIONS: List reviewed. No immunosuppressants. PAST MEDICAL HISTORY: Prostate cancer discovered last year, underwent radical prostatectomy followed by external beam radiation. He has not yet been assessed for a persistent disease. He also has hyperlipidemia. Otherwise, no chronic medical illnesses. FAMILY HISTORY: Hypertension. SOCIAL HISTORY: He is . Lives locally. Works for the [employer]. REVIEW OF SYSTEMS: Lifelong excessive thirst, which is now worse. 14-point review, otherwise, negative. PHYSICAL EXAMINATION: GENERAL: This is a middle-aged male, appears his actual age. No acute distress. VITAL SIGNS: His temperature on arrival 37.6, and christy several minutes later up to 38.9. His T-max while here has been as high as 40.1 on hospital day #2. In the last 24 hours T-max 38.2, blood pressure 100/55, pulse 102, respirations 18, 96%. SKIN: Warm and dry. No rashes. NODES: He has no axillary or cervical adenopathy. EENT: Pupils equal, round, and reactive to light. The conjunctivae are normal. No petechiae. The oropharynx, oral mucosa normal. Teeth in excellent repair. NECK: No meningismus, mass, thyromegaly, tracheal deviation, stridor. LUNGS: Clear to auscultation and percussion. Good air entry. BACK: No CVAT. No spinal deformities. CHEST: Equal expansion. Normal AP diameter. No tenderness. CARDIAC: Regular rate and rhythm. No murmur, gallop, or rub. No heaves. PMI is not displaced. Pulses 2+. ABDOMEN: Soft, nontender. No organomegaly. No masses. Normal bowel sounds. EXTREMITIES: Without clubbing, cyanosis, or edema. No venous varicosities. No calf tenderness. MUSCULOSKELETAL: No active joint inflammation. No prosthetic joints. NEUROLOGIC: Awake, alert, oriented, appropriate. Moves all extremities well. LABORATORY DATA: Urine culture from a week ago at the [facility], read as suspected suboptimal specimen. No comment is made as far as growth. His urinalysis from last week also reviewed. Here, his urinalysis with 0-2 red cells, 0-3 white cells, moderate sediment, 1+ blood, 3+ protein, cloudy, otherwise normal. His EBV panel shows immune status. Influenza screen negative. Hepatitis panel nonreactive. His Monospot neg
[2019-10-14] MEDS: hydrOXYzine HCL 25 MG TABLET 50 MG PO (20:47)
[2019-10-14] MEDS: MELATONIN 3 MG TABLET PO (20:47)
[2019-10-15 06:00] VITALS: BP 100/43; PULSE 97; RESP 18; TEMP 37.3; O2SAT 92
[2019-10-15 06:33] LABS: Hematocrit 29.2 % (42.0-52.0); Mean Corpuscular HGB Conc 34.2 g/dl (32-36); Mean Corpuscular Hemoglobin 30.8 pg (26-34); Mean Corpuscular Volume 89.8 fl (80-100); Mean Platelet Volume 10.8 fl (7.4-10.4); Platelet Count Result 185 k/mm3 (150-375); Red Blood Count 3.25 M/mm3 (4.6-6.20); Red Cell Distribution Width 13.6 % (11.5-14.5); White Blood Count 5.8 K/mm3 (4.5-10.0)
[2019-10-15 06:54] LABS: Alanine Aminotransferase 86 U/L (4-50); Albumin Level 2.5 g/dL (3.5-5.1); Alkaline Phosphatase 67 U/L (38-126); Aspartate Amino Transferase 66 U/L (17-59); Bilirubin,Total 0.3 mg/dL (0.2-1.3); Blood Urea Nitrogen 13 mg/dL (9-20); Calcium 7.3 mg/dL (8.4-10.2); Carbon Dioxide 24 mmol/L (22-30); Chloride 98 mmol/L (98-107); Estimated CRCL calculation 98 ml/min; Estimated Glomerular Filt Rate > 60; Glucose 95 mg/dL (75-110); Potassium 3.2 mmol/L (3.4-5.0); Sodium 128 mmol/L (137-145)
[2019-10-15] MEDS: POTASSIUM CHLORIDE 20 MEQ TABLET 40 MEQ PO (08:22)
--- NOTE | 2019-10-15 13:16 | PM.IMPN ---
Progress Note: A&P Assessment and Plan (1) Febrile illness, acute: Code(s): R50.9 - Fever, unspecified Status: Acute Assessment and Plan: -----patient continues to have intermitten fevers with elevated LFTs and diarrhea although both are less frequent. I do believe he is improving. As for the etiology, it is likely a viral illness. Hepatitis screen is negative. He has had some acute on chronic diarrhea and that has been sent for testing which is all negative so far. Still awaiting campylobacter. Cdiff negative. His blood cultures are negative so far. CT of the chest shows no infection. He does have some abnormalities on his abd/pelvis CT which show a possible upper UTI but his UA and U/S does not support this. CBC shows atypical lymphs. [place] screen negative. no lymphadenopathy on exam. No rashes on exam. CMV, wet nile, lymes, EBV, and rickettsia all less likely but pending. COVID and influenza neg. Legionella type symptoms (diarrhea, fever, hyponatremia) but no PNA. [place] fever? ID consulted. ABX stopped. (2) Sepsis: Qualifiers: Sepsis type: sepsis due to unspecified organism Sepsis acute organ dysfunction status: with acute organ dysfunction Severe sepsis acute organ dysfunction type: acute liver failure Hepatic coma status: without hepatic coma Severe sepsis shock status: without septic shock Qualified Code(s): A41.9 - Sepsis, unspecified organism; R65.20 - Severe sepsis without septic shock; K72.00 - Acute and subacute hepatic failure without coma Code(s): A41.9 - Sepsis, unspecified organism Status: Acute Assessment and Plan: ----- With fever and sinus tachycardia; source is unclear but may be related to a viral syndrome. See above. (3) Transaminitis: Code(s): R74.0 - Nonspecific elevation of levels of transaminase and lactic acid dehydrogenase [LDH] Status: Acute Assessment and Plan: ------Unclear etiology at this time. May be releated to infection as stated above. LFTs improving slowly. (4) Elevated d-dimer: Code(s): R79.89 - Other specified abnormal findings of blood chemistry Status: Acute Assessment and Plan: -------CTA for PE was nondiagnostic. VQ scan is normal. Venous dopplers lower extremities are negative for DVT. PE less likely. No hypoxia (5) Normocytic anemia: Code(s): D64.9 - Anemia, unspecified Status: Acute Assessment and Plan: ------Unsure of chronicity. No evidence of acute bleeding. Monitor H&H, transfuse PRN. (6) Suspected COVID-19 virus infection: Code(s): Z20.828 - Contact with and (suspected) exposure to other viral communicable diseases Status: Ruled-out Assessment and Plan: ------COVID negative 10/04 outpatient; retested in ED and again negative. (7) Hyponatremia: Code(s): E87.1 - Hypo-osmolality and hyponatremia Status: Acute Assessment and Plan: ------Na 126 on arrival, 128 again today. Fluids stopped 10/13 and fluid restriction started 10/14. Urine sodium is high--Likely SIADH. Pt is drinking a lot of fluids but is dialing it back (8) Hyperlipidemia: Qualifiers: Hyperlipidemia type: unspecified Qualified Code(s): E78.5 - Hyperlipidemia, unspecified Code(s): E78.5 - Hyperlipidemia, unspecified Status: Chronic Assessment and Plan: ------His statin therapy is held secondary to elevated liver enzymes. Subjective Date/time seen: 10/15/19 13:16 Interval history: Pt is a 59-year-old male here for a febrile illness. Pt was seen today and states he feels like he is turning a corner. He has had some diarrhea but much less than yesterday. He had a fever overnight. He is slowly getting his appetite back. No chest pain, shortness breath, nausea or vomiting. He did mention that he has a frontal headache that will not go away but only has mild pain with it. Exam Narrative: Exam Na
[2019-10-15 14:00] VITALS: BP 123/58; PULSE 92; RESP 16; TEMP 36.4; O2SAT 98
[2019-10-15 17:03] LABS: RMSF IgG Ttr Chg Test Yes
[2019-10-15 20:15] VITALS: PULSE 99; RESP 21; O2SAT 100
[2019-10-15 22:00] VITALS: BP 107/64; PULSE 99; RESP 20; TEMP 38; O2SAT 100
[2019-10-15 22:14] VITALS: TEMP 38
[2019-10-15] MEDS: hydrOXYzine HCL 25 MG TABLET 50 MG PO (22:14)
[2019-10-15] MEDS: ACETAMINOPHEN 325 MG TABLET 650 MG PO (22:14)
[2019-10-15] MEDS: MELATONIN 3 MG TABLET PO (22:14)
[2019-10-15] MEDS: LORAZEPAM 0.5 MG TABLET PO (22:21)
[2019-10-15 23:10] VITALS: TEMP 37.1
[2019-10-16 00:07] VITALS: PULSE 95; RESP 22; O2SAT 100
[2019-10-16 06:00] VITALS: BP 123/66; PULSE 62; RESP 20; TEMP 36.6; O2SAT 93
[2019-10-16 07:34] LABS: Hematocrit 33.1 % (42.0-52.0); Hemoglobin 11.3 g/dL (14.0-18.0); Mean Corpuscular HGB Conc 34.1 g/dl (32-36); Mean Corpuscular Hemoglobin 30.8 pg (26-34); Mean Corpuscular Volume 90.2 fl (80-100); Mean Platelet Volume 11.7 fl (7.4-10.4); Platelet Count Result 228 k/mm3 (150-375); Red Blood Count 3.67 M/mm3 (4.6-6.20); Red Cell Distribution Width 13.9 % (11.5-14.5)
[2019-10-16 07:35] LABS: Alanine Aminotransferase 95 U/L (4-50); Albumin Level 3.1 g/dL (3.5-5.1); Alkaline Phosphatase 86 U/L (38-126); Aspartate Amino Transferase 74 U/L (17-59); Bilirubin,Total 0.3 mg/dL (0.2-1.3); Blood Urea Nitrogen 12 mg/dL (9-20); Calcium 8.1 mg/dL (8.4-10.2); Carbon Dioxide 24 mmol/L (22-30); Chloride 103 mmol/L (98-107); Estimated CRCL calculation 98 ml/min; Estimated Glomerular Filt Rate > 60; Glucose 100 mg/dL (75-110); Potassium 3.3 mmol/L (3.4-5.0); Sodium 134 mmol/L (137-145)
[2019-10-16] MEDS: LORAZEPAM 0.5 MG TABLET PO (11:44)
[2019-10-16] MEDS: IBUPROFEN 400 MG TABLET PO (11:44)
[2019-10-16] MEDS: POTASSIUM CHLORIDE 20 MEQ TABLET 40 MEQ PO (12:47)
[2019-10-16 14:00] VITALS: BP 125/73; PULSE 89; RESP 18; TEMP 36.2; O2SAT 98
--- NOTE | 2019-10-16 14:42 | WPDINFPN2 ---
Progress Note: A&P Assessment and Plan (1) Febrile illness, acute: Code(s): R50.9 - Fever, unspecified Status: Acute Assessment and Plan: 1. Fever, viral syndrome e.g., enterovirus or CMV, suspected 2. Elevated LFTs, due to #1 or due to TMP-SMX hypersensitivity 3. Past prostate cancer, not immunosuppressed. 4. Hyponatremia, SIADH? 5. RMSF exposure in past by serology, no clinical illness REC Hold empiric antibacterials. Multiple serologies still in process. Add CMV PCR, due to peripheral neuropathy symptom. Ok discharge, clinical f/u. See me in office at request of emergency management system director. Discussed. No LP. No isolation. Subjective Date/time seen: 10/16/19 14:42 Interval history: tingling pain LEs 2 weeks ago transient, now more constant Exam Narrative: Exam Narrative: t max 38.0 Const: General: no acute distress Resp: Effort & Inspection: normal respiratory effort Auscultation: clear to auscultation bilaterally Cardio: Rate: regular rate Rhythm: regular rhythm Heart sounds: no gallops and no murmurs Other: DP pulses 2+ GI: Inspection: non-distended GI Palp: Yes Soft to palpation and No Tenderness to palpation present (GI) Objective Data Vital Signs Vital Signs: Vital Signs - 24 hr 10/15/19 20:15 10/15/19 22:00 10/15/19 22:14 Temperature 38.0 C H 38.0 C H Pulse Rate 99 99 Respiratory Rate 21 H 20 Blood Pressure 107/64 Pulse Oximetry 100 100 10/15/19 23:10 10/16/19 00:07 10/16/19 06:00 Temperature 37.1 C 36.6 C Pulse Rate 95 62 Respiratory Rate 22 H 20 Blood Pressure 123/66 Pulse Oximetry 100 93 Intake/Output Intake/Output: Intake & Output 10/13/19 10/14/19 10/15/19 10/16/19 23:59 23:59 23:59 23:59 Intake Total 4050 2890 1500 880 Output Total 1100 1750 1750 600 Balance 2950 1140 -250 280 Meds/Results Medications: Active Medications Generic Name Dose Route Start Last Admin Trade Name Freq PRN Reason Stop Dose Admin Acetaminophen 650 mg 10/13/19 12:38 06/25/20 22:14 Tylenol Tablet PO 650 mg Q6H PRN Administration Mild Pain (1-3) or Fever Diphenhydramine HCl 25 mg 10/11/19 03:58 10/13/19 23:01 Benadryl Elixir BY MOUTH 25 mg ONCE PRN Administration insomnia Hydroxyzine HCl 50 mg 10/11/19 21:00 10/15/19 22:14 Atarax Tablet PO 50 mg HS ROB Administration Ibuprofen 400 mg 10/11/19 06:22 10/16/19 11:44 Motrin PO 400 mg Q6H PRN Administration Pain Rated 1-3 or Fever Lorazepam 0.5 mg 10/11/19 15:34 10/16/19 11:44 Ativan Tab PO 0.5 mg Q6H PRN Administration Anxiety Melatonin 3 mg 10/11/19 21:00 10/15/19 22:14 Melatonin PO 3 mg HS ROB Administration Radiology Results: ITS Impressions Chest CTA 10/11/19 09:19 IMPRESSION: 1. No acute cardiopulmonary disease. Study nondiagnostic for evaluation of pulmonary embolism. Consider correlation with ventilation/perfusion scan or repeat CT angiogram. 2: Small hiatal hernia. Venous Doppler Study 10/11/19 10:32 IMPRESSION: 1: No lower extremity deep venous thrombosis. Upper Quadrant Ultrasound 10/11/19 10:33 IMPRESSION: 1: Hepatic steatosis. Pulmonary Perfusion Imaging 10/12/19 12:53 IMPRESSION: Normal perfusion scan. Chest X-Ray 10/12/19 12:55 IMPRESSION: Unremarkable chest x-ray exam. Abdomen/Pelvis CT 10/12/19 12:56 IMPRESSION: 1. Mild to moderate bilateral perinephric and left periureteral fat stranding; correlate with urinalysis for possible upper urinary tract infection. 2. Colonic fluid, correlate for diarrhea. 3. Colonic diverticulosis. Renal Ultrasound 10/13/19 15:37 IMPRESSION: 1. Normal kidneys without hydronephrosis. Labs Labs: Laboratory Results - last 24 hr 10/12/19 10/16/19 10/16/19 05:59 06:51 06:52 WBC 6.0 RBC 3.67 L Hgb 11.3 L Hct 33.1 L MCV 90.2 MCH 30.8 MCHC 34.1 RDW 13.9
--- NOTE | 2019-10-16 14:48 | PM.DS ---
DS: Admitting Diagnosis Admitting Diagnosis Admitting Diagnosis: Fever, unspecified DS: Discharge Diagnosis Discharge Diagnosis (1) CMV infection: Code(s): B25.9 - Cytomegaloviral disease, unspecified Status: Acute Assessment and Plan: -----patient's symptoms are consistent with a viral illness. Lab work shows a positive IgM for CMV. He did have some peripheral neuropathy, fevers, elevated liver enzymes and GI upset. This is likely the cause of his febrile illness. We are still awaiting other serology. I called the patient and let him know about CMV, how its transmitted, and the side effects to look out for. He is not to be around people. The patient is still having significant neuropathy and trouble sleeping but is not having any more fevers. I have called Dr. thomas's exchange. I am also going to call his primary care physician tomorrow and let them know about the diagnosis. He is not having any vision loss or issues with his vision. He will also need an HIV test. (2) Febrile illness, acute: Code(s): R50.9 - Fever, unspecified Status: Acute Assessment and Plan: -----See above. Hepatitis screen is negative. He has had some acute on chronic diarrhea and that has been sent for testing which is all negative so far. Stool culture and C diff negative. His blood cultures are negative so far. CT of the chest shows no infection. He does have some abnormalities on his abd/pelvis CT which show a possible upper UTI but his UA and U/S does not support this. CBC shows atypical lymphs. [place] screen negative. no lymphadenopathy on exam. No rashes on exam. CMV IgM positive. [place], [place], EBV, and rickettsia all less likely but pending. COVID and influenza neg. Legionella negative. (3) Sepsis: Qualifiers: Sepsis type: sepsis due to unspecified organism Sepsis acute organ dysfunction status: with acute organ dysfunction Severe sepsis acute organ dysfunction type: acute liver failure Hepatic coma status: without hepatic coma Severe sepsis shock status: without septic shock Qualified Code(s): A41.9 - Sepsis, unspecified organism; R65.20 - Severe sepsis without septic shock; K72.00 - Acute and subacute hepatic failure without coma Code(s): A41.9 - Sepsis, unspecified organism Status: Acute Assessment and Plan: ----- With fever and sinus tachycardia; source is unclear but may be related to a viral syndrome. See above. (4) Transaminitis: Code(s): R74.0 - Nonspecific elevation of levels of transaminase and lactic acid dehydrogenase [LDH] Status: Acute Assessment and Plan: ------resolved. Likely related to infection as stated above. LFTs improving slowly. (5) Elevated d-dimer: Code(s): R79.89 - Other specified abnormal findings of blood chemistry Status: Acute Assessment and Plan: -------CTA for PE was nondiagnostic. VQ scan is normal. Venous dopplers lower extremities are negative for DVT. PE less likely. No hypoxia (6) Normocytic anemia: Code(s): D64.9 - Anemia, unspecified Status: Acute Assessment and Plan: ------Unsure of chronicity. No evidence of acute bleeding. Monitor H&H, transfuse PRN. (7) Suspected COVID-19 virus infection: Code(s): Z20.828 - Contact with and (suspected) exposure to other viral communicable diseases Status: Ruled-out Assessment and Plan: ------COVID negative 10/04 outpatient; retested in ED and again negative. (8) Hyponatremia: Code(s): E87.1 - Hypo-osmolality and hyponatremia Status: Acute Assessment and Plan: ------Na 126 on arrival, 134 at discharge. (9) Hyperlipidemia: Qualifiers: Hyperlipidemia type: unspecified Qualified Code(s): E78.5 - Hyperlipidemia, unspecified Code(s): E78.5 - Hyperlipidemia, unspecified Status: Chronic Assessment and Plan: ------
--- NOTE | 2019-10-16 18:40 | PC.NURSE ---
Pt is A&O x 3. Pt has been discharged from this facility. Pt had IV removed, and discharge paperwork reviewed. Opportunity for questions provided. Pt exhibited good understanding of discharge instructions. Pt was assisted to a wheelchair and taken to the front of the building to meet his ride.
[2019-10-17 21:31] LABS: Legionella pneumophila Ag Ur Not Detected (Not Detected)
[2019-10-18 21:26] LABS: Lyme Disease Ab (IgM), Blot Negative (Negative); Lyme Disease Ab(IgG), Blot Negative (Negative)
[2019-10-19 18:37] LABS: CMV DNA Quant PCR IU/mL <200 IU/mL (<200); Cytomegalovirus DNA Quant PCR <2.30 log IU/mL (<2.30); Cytomegalovirus DNA Source Whole Blood
--- NOTE | 2019-10-20 14:02 | PC.NURSE ---
Isopura and cyclo are both negative. CMV elevated at 33.70 Ur legionella - negative. E. chaffeensis elevated. Results faxed to Dr. Barrera.
[2019-12-04 16:02] LABS: West Nile Virus, IgM <0.90
== END 2019-10-16 17:55 | disposition home or self-care (01) | DRG 871 ==
LOC: ANHED 10-11 00:19 → ANH3MEDSUR 10-11 03:07
PROVIDERS: Internal Medicine Infectious Disease; Physician Assistant; Admitting Provider Family Medicine; Emergency Provider General Practice; Visit Provider Physician Assistant
DX: A41.89 Other specified sepsis (principal); K72.00 Acute and subacute hepatic failure without coma; B25.9 Cytomegaloviral disease, unspecified; E22.2 Syndrome of inappropriate secretion of antidiuretic hormone; R65.20 Severe sepsis without septic shock; Z20.828 Contact with and (suspected) exposure to other viral communicable diseases; G62.9 Polyneuropathy, unspecified; R79.89 Other specified abnormal findings of blood chemistry; R74.0 Nonspecific elevation of levels of transaminase and lactic acid dehydrogenase [LDH]; D64.9 Anemia, unspecified; E78.5 Hyperlipidemia, unspecified; Z85.46 Personal history of malignant neoplasm of prostate
CPT/HCPCS: 36415; 71046; 71275; 74176; 76705; 76775; 78580; 80048; 80053; 80074; 80076; 81001; 82570; 82728; 83605; 83615; 83735; 83880; 84100; 84156; 84300; 84443; 84484; 85025; 85027; 85380; 85610; 85730; 86038; 86140; 86308; 86617; 86645; 86664; 86665; 86666; 86757; 86788; 87015; 87040; 87045; 87046; 87207; 87269; 87272; 87324; 87427; 87449; 87497; 87635; 87804; 89055; 93005; 93306; 93970; 94660; 96361; 96365; 96372; 99285; A9270; A9540; C9803; G0378; J0131; J0696; J1650; J7030; J7120; Q9967; U0003

== ENCOUNTER 2020-09-09 15:40 | Outpatient (CLI) | payer OTHER, SELFPAY ==
[2020-09-09 16:34] LABS: Prostate Specific Antigen < 0.1 ng/mL (< OR = 4.0)
== END 2020-09-09 15:41 | disposition home or self-care (01) ==
LOC: ANHLAB 15:42
PROVIDERS: PCP Internal Medicine; Visit Provider Physician Assistant
DX: Z85.46 Personal history of malignant neoplasm of prostate (principal)
CPT/HCPCS: 36415; 84153

== ENCOUNTER 2020-11-09 01:17 | Day surgery (SDC) | payer OTHER, SELFPAY ==
[2020-10-27 08:38] VITALS: BMI 29.5
--- NOTE | 2020-11-08 09:02 | WPDANESEPPF ---
Anes - Initial Pre Proc Eval Procedure: Operation Date: 11/09/20 07:30 Proposed Procedures p Screening Colonoscopy - Stew See MD Date/Time: 11/08/20 09:02 Surgeon: Stew See MD Pre Op Diagnosis: neoplasm screening Patient Data Age: 60 Gender: M Height: 1.75 m Weight: 90.9 kg Allergies Allergy/AdvReac Type Severity Reaction Status Date / Time venom-honey bee Allergy Severe FAINTING Verified 11/09/20 06:14 venom-wasp Allergy Unknown Fainting Verified 11/09/20 06:14 Home Medications Medication Instructions Recorded Confirmed Type rosuvastatin 10 mg PO DAILY 10/10/19 11/09/20 History Patient hx anesthesia problems: none Family hx anesthesia problems: none PMFSH Past Medical History Medical History (Updated 11/08/20 @ 09:03 by Bernardino Dozier DO) Hyperlipidemia RODY (obstructive sleep apnea) not use a CPAP Prostate cancer Surgical History Surgical History H/O prostatectomy Family History Family History Father Hypertension Father Hypertension, Onset Age: 65 Patient's father is Mother Patient's mother is in good health Sibling Patient's sister is in good health Patient's brother is in good health Social History Social History Smoking status: Former smoker Smoking end date: 04/22/17 Alcohol intake: current Drinks per week: 2 Substance use: never Substance use type: does not use Living arrangements: with family Gender identity (if verbalized by the patient): Male Spiritual care concerns: No Anes - Eval Final PreProcedure Day of Procedure 11/08/20 09:02 Patient weight: overweight Heart: regular rate and rhythm Lungs: clear to auscultation and normal air movement Airway: Mallampati scale class II Neurological: alert and oriented Last oral intake: >/= 8 hours ASA classification: III Emergent: no Anesthetic plan: proceed Anesthesia type and monitoring: general GIVS and standard monitoring Informed Consent: The patient's anesthetic plan and its attendant risks and benefits were discussed with the patient/family/POA. Questions were solicited and answers provided to the satisfaction of the patient/family/POA.
[2020-11-09 06:16] VITALS: BP 134/86; PULSE 93; RESP 15; TEMP 35.7; O2SAT 98
[2020-11-09] MEDS: LACTATED RINGERS 1,000 ML 150 ML IV CONT (06:27)
--- NOTE | 2020-11-09 07:04 | PM.HPGS ---
History of Present Illness History of Present Illness Consent: Risks, benefits, and alternatives have been discussed and questions answered. Patient agrees to proceed with procedure. Chief complaint: neoplasm screening Narrative: Ortega Melendez is a 60 year old male For colon cancer screening Review of Systems Review of Systems: All systems reviewed & are unremarkable except as noted in HPI and below PMFSH Past Medical History Medical History Hyperlipidemia RODY (obstructive sleep apnea) not use a CPAP Prostate cancer Surgical History Surgical History H/O prostatectomy Family History Family History Father Hypertension Father Hypertension, Onset Age: 65 Patient's father is Mother Patient's mother is in good health Sibling Patient's sister is in good health Patient's brother is in good health Social History Social History Smoking status: Former smoker Smoking end date: 04/22/17 Alcohol intake: current Drinks per week: 2 Substance use: never Substance use type: does not use Living arrangements: with family Gender identity (if verbalized by the patient): Male Spiritual care concerns: No Meds Home Medications and Allergies Home Medications Medication Instructions Recorded Confirmed Type rosuvastatin 10 mg PO DAILY 10/10/19 11/09/20 History Allergies Allergy/AdvReac Type Severity Reaction Status Date / Time venom-honey bee Allergy Severe FAINTING Verified 11/09/20 06:14 venom-wasp Allergy Unknown Fainting Verified 11/09/20 06:14 Vital Signs Vital Signs - 24 hr 11/09/20 06:16 Temperature 35.7 C L Pulse Rate 93 Respiratory Rate 15 Blood Pressure 134/86 Pulse Oximetry 98 Exam Const: General: alert Orientation/consciousness: patient oriented x3 Resp: Auscultation: clear to auscultation bilaterally Cardio: Rhythm: regular rhythm GI: GI Palp: Yes Soft to palpation and No Tenderness to palpation present (GI) Neuro: General: patient oriented x3 Assessment and Plan Assessment and plan (1) Screening for colorectal cancer: Code(s): Z12.11 - Encounter for screening for malignant neoplasm of colon; Z12.12 - Encounter for screening for malignant neoplasm of rectum Status: Acute Assessment and Plan: Colonoscopy with possible biopsy or polypectomy or cautery or injection of substances.
[2020-11-09 07:44] VITALS: BP 114/74; PULSE 77; RESP 20; O2SAT 98
[2020-11-09 07:54] VITALS: BP 135/80; PULSE 71; RESP 20; O2SAT 99
[2020-11-09 08:04] VITALS: BP 132/78; PULSE 65; RESP 12; O2SAT 99
== END 2020-11-09 08:22 | disposition home or self-care (01) ==
PROVIDERS: PCP Internal Medicine; Visit Provider Internal Medicine Gastroenterology
PROC: 0DJD8ZZ Inspection of Lower Intestinal Tract, Via Natural or Artificial Opening Endoscopic (ICD-10-PCS; CPT 45378; principal; 2020-11-09 07:30)
DX: Z12.11 Encounter for screening for malignant neoplasm of colon (principal); K57.30 Diverticulosis of large intestine without perforation or abscess without bleeding; K64.8 Other hemorrhoids; E78.5 Hyperlipidemia, unspecified; G47.33 Obstructive sleep apnea (adult) (pediatric); Z85.46 Personal history of malignant neoplasm of prostate; Z87.891 Personal history of nicotine dependence
CPT/HCPCS: 45378; J2704; J7120

== ENCOUNTER 2021-08-21 14:37 | Outpatient (CLI) | payer OTHER, SELFPAY ==
--- NOTE | ~2021-08-21 | US_ITS ---
EXAMINATION: US arterial ankle brachial ind DATE: 08/21/2021 15:39 INDICATION: Peripheral vascular disease TECHNIQUE: Segmental pressures and plethysmographic and Doppler waveforms of the brachial and lower e xtremity arteries were obtained. COMPARISON: None. FINDINGS: Right and left brachial artery pressures of 126 mm Hg and 134 mm Hg, respectively, are concordant (no rmal difference <= 30 mmHg). The right ankle-brachial index (WILLIE) is 1.21 (normal >= 0.9-1.0). The right great toe-brachial index (TBI) is 0.84 (normal >= 0.65). Arterial Doppler waveforms triphasic with brisk systolic upstrokes at both right posterior tibial and dorsalis pedis arteries. The left WILLIE is 1.24. The left TBI is 0.86. Arterial Doppler waveforms are triphasic with brisk systo lic upstrokes at both left posterior tibial and dorsalis pedis arteries. IMPRESSION: 1. No significant arterial occlusive disease with normal bilateral ABIs and TBIs Reviewed, dictated and finalized at location A. IMPRESSION: 1. No significant arterial occlusive disease with normal bilateral ABIs and TBI s
== END 2021-08-21 14:38 | disposition home or self-care (01) ==
LOC: ANHIMG 14:44
PROVIDERS: PCP Internal Medicine; Visit Provider Physician Assistant
DX: I73.9 Peripheral vascular disease, unspecified (principal)
CPT/HCPCS: 93922

== ENCOUNTER 2021-09-12 07:09 | Outpatient (CLI) | payer OTHER, SELFPAY ==
[2021-09-12 07:23] LABS: Hematocrit 41.5 % (42.0-52.0); Hemoglobin 13.8 g/dL (14.0-18.0); Mean Corpuscular HGB Conc 33.3 g/dl (32-36); Mean Corpuscular Hemoglobin 30.9 pg (26-34); Mean Platelet Volume 9.7 fl (7.4-10.4); Platelet Count Result 261 k/mm3 (150-375); Red Blood Count 4.46 M/mm3 (4.6-6.20); Red Cell Distribution Width 13.5 % (11.5-14.5); White Blood Count 6.8 K/mm3 (4.5-10.0)
[2021-09-12 07:38] LABS: Alanine Aminotransferase 37 U/L (6-50); Albumin Level 4.4 g/dL (3.5-5.1); Alkaline Phosphatase 67 U/L (38-126); Anion Gap 9 mmol/L (8-16); Aspartate Amino Transferase 38 U/L (17-59); Bilirubin,Total 0.4 mg/dL (0.2-1.3); Blood Urea Nitrogen 11 mg/dL (9-20); Calcium 8.6 mg/dL (8.4-10.2); Carbon Dioxide 23 mmol/L (22-30); Chloride 106 mmol/L (98-107); Cholesterol 161 mg/dL (0-200); Estimated Glomerular Filt Rate > 60; Glucose 109 mg/dL (65-110); HDL Direct 29 mg/dL; Potassium 4.3 mmol/L (3.4-5.0); Sodium 138 mmol/L (137-145); Triglycerides 214 mg/dL (<150)
[2021-09-12 07:51] LABS: LDL Cholesterol Direct 84 mg/dL
[2021-09-12 08:07] LABS: Prostate Specific Antigen < 0.1 ng/mL (< OR = 4.0)
[2021-09-12 08:45] LABS: Folic Acid 18.4 ng/mL (2.76->20)
== END 2021-09-12 07:10 | disposition home or self-care (01) ==
LOC: ANHLAB 07:11
PROVIDERS: PCP Internal Medicine; Visit Provider Physician Assistant
DX: R53.83 Other fatigue (principal); E78.5 Hyperlipidemia, unspecified; Z12.5 Encounter for screening for malignant neoplasm of prostate
CPT/HCPCS: 36415; 80053; 80061; 82607; 82746; 84153; 84443; 85027; G0103

== ENCOUNTER 2024-03-04 09:30 | Outpatient (CLI) | payer OTHER, SELFPAY ==
[2024-03-04 09:51] LABS: Basophils Absolute Auto 0.1 K/mm3 (0.0-0.1); Basophils Percent Auto 0.7 % (0.2-1.2); Eosinophils Absolute Auto 0.1 K/mm3 (0-0.3); Eosinophils Percent Auto 1.5 % (0-4.4); Hematocrit 44.1 % (42.0-52.0); Hemoglobin 14.6 g/dL (14.0-18.0); Immature Granulocyte Absolute 0.02 K/mm3 (0.00-0.031); Immature Granulocyte Percent A 0.3 % (0-0.5); Lymphocytes Absolute Auto 1.47 K/mm3 (0.9-3.2); Mean Corpuscular HGB Conc 33.1 g/dl (32-36); Mean Corpuscular Hemoglobin 30.5 pg (26-34); Mean Corpuscular Volume 92.1 fl (80-100); Mean Platelet Volume 9.9 fl (7.4-10.4); Monocytes Absolute Auto 0.8 K/mm3 (0.1-0.6); Monocytes Percent Auto 11.4 % (2.6-8.5); Neutrophils Absolute Auto 4.3 K/mm3 (1.3-6.7); Neutrophils Percent Auto 64.1 % (45.5-73.1); Platelet Count Result 254 k/mm3 (150-375); Red Blood Count 4.79 M/mm3 (4.6-6.20); White Blood Count 6.7 K/mm3 (4.5-10.0)
[2024-03-04 09:56] LABS: Add Urine Microscopic? NO; Appearance Urine Clear (Clear); Bilirubin Urine Negative (Negative); Blood Urine Negative (Negative); Color Urine Yellow (Yellow); Glucose Urine UA Negative (Negative); Ketones Urine Negative (Negative); Leukocyte Esterase Ur Negative LEU/UL (Negative); Nitrate Urine Negative (Negative); Protein Urine Negative (Negative); Specific Grav Ur 1.019 (1.001-1.035); Urobilinogen Urine 0.2 mg/dL (<2.0); pH Urine 5.5 (5.0-9.0)
[2024-03-04 10:02] LABS: Alanine Aminotransferase 36 U/L (6-50); Albumin Level 4.6 g/dL (3.5-5.1); Alkaline Phosphatase 62 U/L (38-126); Anion Gap 10 mmol/L (4-12); Aspartate Amino Transferase 38 U/L (17-59); Bilirubin,Total 0.6 mg/dL (0.2-1.3); Blood Urea Nitrogen 14 mg/dL (9-20); CRP < 0.5 mg/dL (<1.0); Calcium 9.4 mg/dL (8.4-10.2); Carbon Dioxide 22 mmol/L (22-30); Chloride 106 mmol/L (98-107); Cholesterol 164 mg/dL (0-200); Estimated Glomerular Filt Rate > 60; Glucose 94 mg/dL (65-110); HDL Direct 35 mg/dL; Potassium 4.2 mmol/L (3.4-5.0); Sodium 138 mmol/L (137-145); Triglycerides 172 mg/dL (<150)
[2024-03-04 10:11] LABS: LDL Cholesterol Direct 93 mg/dL
[2024-03-04 10:31] LABS: Prostate Specific Antigen < 0.1 ng/mL (< OR = 4.0)
== END 2024-03-04 09:31 | disposition home or self-care (01) ==
PROVIDERS: PCP Internal Medicine; Visit Provider Internal Medicine
DX: R31.9 Hematuria, unspecified (principal); R53.83 Other fatigue; E78.5 Hyperlipidemia, unspecified; M62.81 Muscle weakness (generalized)
CPT/HCPCS: 36415; 80053; 80061; 81003; 84153; 84443; 85025; 86140

== ENCOUNTER 2024-04-02 08:35 | Outpatient (CLI) | payer OTHER, SELFPAY ==
[2024-04-02 09:20] LABS: CRP < 0.5 mg/dL (<1.0); Creatine Kinase 99 U/L (55-170)
[2024-04-10 15:02] LABS: Aldolase 2.6 U/L (< OR = 8.1)
== END 2024-04-02 08:36 | disposition home or self-care (01) ==
PROVIDERS: PCP Internal Medicine; Visit Provider Internal Medicine
DX: M62.81 Muscle weakness (generalized) (principal)
CPT/HCPCS: 36415; 82085; 82550; 86038; 86140